=== PATIENT | female | born 1945 | race Two or more races ===

== ENCOUNTER 2016-05-22 16:56 | Emergency (ER) | payer MEDICARE, MEDICAID ==
[~2016-05-22] VITALS: Ht 152.4 cm; Wt 74.8 kg
[~2016-05-22 16:56] MED LIST: BENICAR40 MG ORAL; CRESTOR10 M1 ORAL; DEXILANT60 MG ORAL
[2016-05-22 17:10] VITALS: BP 167/82
--- NOTE | 2016-05-22 17:23 | Emergency Room Report ---
History of Present Illness General Chief Complaint: Abdominal Pain Source: Patient Present Illness HPI [id number] with generalized abdominal pain for 2 days. No assoc nausea/vomiting, diarrhea, fever/chills, urinary complaints. Previous conolonscopy/endoscopy reveals the following: Indication for Procedure: abdominal pain Procedures Performed: EGD, colonoscopy Operative Findings/Diagnosis: hiatal hernia, gastritis, diverticulosis, sessile colon polyps<5mm, hemorrh Took Ibuprofen for pain with some improvement. Otherwise denies abd surgery, otehr medical problems. Allergies: Coded Allergies: No Known Allergies (Unverified , 07/04/14) Patient History Past Medical History: other - gastritis, hiatal hernia, diverticulitis Pertinent Family History: none Social History: Denies: alcohol use, drug use, smoking Now: No Immunizations: UTD Reviewed Nursing Documentation: PMH: Agreed, PSxH: Agreed Nursing Documentation-PMH Past Medical History: No History, Except For Hx Hypertension: Yes Hx Cancer: No Hx Gastrointestinal Problems: No Hx Neurological Problems: No Review of Systems All Other Systems: negative except mentioned in HPI Physical Exam Vital Signs Date Time Temp Pulse Resp B/P Pulse Ox O2 Delivery O2 Flow Rate FiO2 05/22/16 17:02 98.2 110 16 167/82 98 Room Air Sp02 EP Interpretation: reviewed, abnormal General Appearance: normal inspection, well appearing, no apparent distress, alert, GCS 15, non-toxic Head: normocephalic, atraumatic Eyes: bilateral eye EOMI, bilateral eye PERRL ENT: normal ENT inspection, hearing grossly normal, normal voice Neck: normal inspection, full range of motion, supple, no bony tend Respiratory: normal inspection, lungs clear, normal breath sounds, no respiratory distress, no retraction, no wheezing Cardiovascular #1: regular rate, rhythm, no edema Gastrointestinal: normal inspection, normal bowel sounds, non tender, soft, no mass, no guarding, no hernia, no pulsatile mass, abnormal bowel sounds Genitourinary: no CVA tenderness Musculoskeletal: normal inspection, back normal, normal range of motion, Susana' s Sign negative Neurologic: normal inspection, alert, oriented x3, responsive, 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 Mild JONH. UA with blood. CTAP c/w left pyelo Patient not vomiting. Tolerating PO in ED Prefers PO Abx and to go home as [place]" on [place]. Rx Cipro for 1 week PMD followup EKG Diagnostic Results Rate: tachycardiac Rhythm: NSR ST Segments: no acute changes ASA given to the pt in ED: No Rhythm Strip Diag. Results EP Interpretation: yes Rate: 105 Rhythm: NSR, no PVC's, no ectopy Last Vital Signs Date Time Temp Pulse Resp B/P Pulse Ox O2 Delivery O2 Flow Rate FiO2 05/22/16 17:02 98.2 110 16 167/82 98 Room Air Status: improved Disposition: HOME, SELF-CARE Scripts Ciprofloxacin Hcl* (CIPROFLOXACIN HCL*) 500 Mg Tablet 500 MG ORAL Q12H for 7 Days, #13 TAB 0 Refills Prov: LORRIE SHAH M.D. 05/22/16 LORRIE SHAH M.D. May 22, 2016 17:23
[2016-05-22] MEDS ORDERED: Morphine Sulfate 4mg/ml Inj IVP ONE (17:45)
[2016-05-22 18:15] LABS: TROPONIN I < 0.30 ng/mL (<=0.30)
[2016-05-22 18:16] LABS: ALBUMIN/GLOBULIN RATIO 1.3 (1.0-2.7); CALCIUM 9.4 mg/dL (8.6-10.2); TOTAL PROTEIN 7.7 g/dL (6.6-8.7)
[2016-05-22] MEDS ORDERED: LR 1000ml 1,000 ML IV STA (18:31)
[2016-05-22 18:37] LABS: APPEARANCE,URINE CLEAR; BASOPHILS % (AUTO) 0.3 % (0.0-2.0); EOSINOPHILS % (AUTO) 0.1 % (0.0-3.0); KETONES,URINE NEGATIVE (NEGATIVE); LEUKOCYTE ESTERASE ,URINE NEGATIVE (NEGATIVE); LYMPHOCYTES % (AUTO) 9.2 % (20.0-45.0); MEAN CORPUSCULAR HEMOGLOBIN 29.8 PG (27.0-31.0); MEAN CORPUSCULAR HGB CONC 32.9 G/DL (32.0-36.0); MEAN CORPUSCULAR VOLUME 91 FL (80-99); MEAN PLATELET VOLUME 7.2 FL (6.5-10.1); MONOCYTES % (AUTO) 7.7 % (1.0-10.0); NEUTROPHILS % (AUTO) 82.7 % (45.0-75.0); NITRITE,URINE NEGATIVE (NEGATIVE); PH,URINE 6 (4.5-8.0); PLATELET COUNT 230 K/UL (150-450); PROTEIN,URINE NEGATIVE (NEGATIVE); RED BLOOD COUNT 3.78 M/UL (4.20-5.40); RED CELL DISTRIBUTION WIDTH 12.8 % (11.6-14.8); UROBILINOGEN,URINE NORMAL MG/DL (0.0-1.0); WHITE BLOOD COUNT 16.4 K/UL (4.8-10.8)
[2016-05-22 18:53] LABS: BACTERIA,URINE FEW /HPF; SQUAMOUS EPITHELIAL CELL,UR FEW /LPF (NONE/OCC); WBC,URINE 0-2 /HPF (0 - 2)
[2016-05-22 19:22] VITALS: BP 106/66
[2016-05-22] MEDS ORDERED: CIPROFLOXACIN500 M2 ORAL (20:15)
[2016-05-22] MEDS ORDERED: Ciprofloxacin 500mg tab ORAL ONE (20:15)
[2016-05-22 20:27] VITALS: BP 109/67
--- NOTE | 2016-05-23 09:05 | Diagnostic Imaging Report ---
Clinical Indication: Generalized abdominal pain x2 days, history of hernia, gastritis, diverticulosis Technique: No oral contrast utilized, per emergency room physician request IV administration nonionic contrast. Venous phase spiral acquisition obtained through the abdomen and pelvis. Multiplanar reconstructions were generated. Total dose length product 999 mGycm. CTDIvol(s) 19 mGy Comparison: None Findings: There is extensive colonic diverticulosis. There is equivocal minimal haziness of the pericolonic fat adjacent to the proximal sigmoid. The appendix is normal. No small bowel distention. No free or loculated intraperitoneal air or fluid is evident. The distal esophagus, stomach, duodenum are unremarkable The liver demonstrates multiple subcentimeter low-attenuation lesions which are too small to characterize. The gallbladder, bile ducts, pancreas, spleen, are unremarkable. There is ill-defined abnormal low attenuation in the upper pole of the left kidney. The right kidney is unremarkable. No pelvic mass or adenopathy. Normal uterus and adnexal structures. No retroperitoneal or mesenteric mass or adenopathy. The included lung bases are clear. The bones demonstrate a hemangioma in the T11 vertebral body. There is degenerative spondylosis. Impression: Abnormal low attenuation of the upper pole of the left kidney, does not appear masslike. Suspect focal inflammation such as focal nephritis. Infiltrating neoplasm also a possibility. Correlate with clinical findings Diverticulosis. Equivocal minimal increased attenuation of the pericolonic fat adjacent to the proximal sigmoid colon, very early/minimal diverticulitis not completely excludable. Correlation with clinical findings is recommended. Multiple subcentimeter low-attenuation liver lesions, too small to characterize, most likely benign simple cysts or bile hamartomas. No further followup necessary Incidental findings of degenerative spondylosis, T11 vertebral body hemangioma This agrees with the preliminary interpretation provided overnight by Dr. Morrow The CT scanner at [facility] is accredited by the [employer] and the scans are performed using protocols designed to limit radiation exposure to as low as reasonably achievable to attain images of sufficient resolution adequate for diagnostic evaluation.
--- NOTE | 2016-05-23 20:14 | Cardiology Report ---
APPROVED REPORT EKG Measurement Heart [id number] OR [id number] Sinus tachycardia Cannot rule out Anterior infarct, age undetermined Abnormal ECG
== END 2016-05-22 20:28 | disposition home or self-care (01) ==
LOC: EMR 17:28 → CANBEDREQ 20:12 → EMR 20:28
DX: R10.84 Generalized abdominal pain (principal); N17.9 Acute kidney failure, unspecified; N12 Tubulo-interstitial nephritis, not specified as acute or chronic; I10 Essential (primary) hypertension; K57.92 Diverticulitis of intestine, part unspecified, without perforation or abscess without bleeding; K57.90 Diverticulosis of intestine, part unspecified, without perforation or abscess without bleeding; M47.9 Spondylosis, unspecified; Z86.010 Personal history of colon polyps; R00.0 Tachycardia, unspecified
CPT/HCPCS: 36415; 74177; 80053; 81003; 83690; 84484; 85025; 93005; 96360; 96374; 99284; J2270; J7120; Q9967